=== PATIENT | female | born 1960 | race Caucasian/White ===

== ENCOUNTER 2017-06-17 08:27 | Outpatient (CLI) | payer OTHER ==
[~2017-06-17 08:27] MED LIST: ADVAIR HFA 230/12 GM; TAPAZOLE5 M1
== END 2017-06-17 08:46 | disposition home or self-care (01) ==
LOC: LAB 08:27
DX: I10 Essential (primary) hypertension (principal); D25.1 Intramural leiomyoma of uterus

== ENCOUNTER 2017-06-17 09:29 | Outpatient (CLI) | payer OTHER | END 2017-06-17 09:36 | disposition home or self-care (01) | LOC: MAMO-SONO 09:29 | DX: Z12.31 Encounter for screening mammogram for malignant neoplasm of breast (principal); N60.11 Diffuse cystic mastopathy of right breast; N60.12 Diffuse cystic mastopathy of left breast ==

== ENCOUNTER 2017-07-29 07:30 | Inpatient (IN) | payer OTHER ==
[~2017-07-29] VITALS: Ht 160 cm; Wt 59.0 kg
[~2017-07-29 07:30] MED LIST changes: -TAPAZOLE5 M1; +TAPAZOLE5 M1 PO
== END 2017-08-01 11:29 | disposition home or self-care (01) | DRG 735 ==
LOC: O/R 07-30 05:10 → OB/GYN 07-30 05:10 → SURH 07-30 07:00 → OB/GYN 07-30 13:28
PROVIDERS: Obstetrics & Gynecology Gynecologic Oncology
PROC: 07TC0ZZ Resection of Pelvis Lymphatic, Open Approach (ICD-10-PCS; 2017-07-30)
PROC: 0UT70ZZ Resection of Bilateral Fallopian Tubes, Open Approach (ICD-10-PCS; 2017-07-30)
PROC: 0UT20ZZ Resection of Bilateral Ovaries, Open Approach (ICD-10-PCS; 2017-07-30)
PROC: 0UT90ZZ Resection of Uterus, Open Approach (ICD-10-PCS; principal; 2017-07-30 07:00)
DX: D25.1 Intramural leiomyoma of uterus (principal); N93.8 Other specified abnormal uterine and vaginal bleeding; N72 Inflammatory disease of cervix uteri; N80.0 Endometriosis of uterus; N83.292 Other ovarian cyst, left side; N83.12 Corpus luteum cyst of left ovary; D27.0 Benign neoplasm of right ovary